=== PATIENT | male | born 1960 | race African-American/Black ===

== ENCOUNTER 2017-08-27 06:02 | Emergency (ER) | payer MEDICAID ==
[~2017-08-27] VITALS: Ht 180.3 cm; Wt 72.6 kg
[~2017-08-27 06:02] MED LIST: AMIO200T33 PO; AMLO10TA2 PO; ASPI-231 PO; DOCU-94 PO; HYDR-531 PO; MET50T PO; NAPR-223 PO
[2017-08-27 07:10] LABS: Basophils # (auto) 0 uL; Basophils % (auto) 0.6 % (0.0-2.0); Eosinophils # (auto) 0 uL; Eosinophils % (auto) 0.5 % (0.0-7.0); Hemoglobin 13.9 g/dL (13.5-17.5); Lymphocytes % (auto) 21.8 % (10.0-50.0); Mean Corpuscular Hemoglobin 27.4 pg (28.0-32.0); Mean Corpuscular Hgb Conc. 33.1 g/dL (32.0-36.0); Mean Corpuscular Volume 82.8 fL (80.0-100.0); Monocytes # (auto) 0.5 uL; Monocytes % (auto) 12.1 % (0.0-12.0); Neutrophils # (auto) 2.9 uL; Nucleated Red Blood Cells % 0.2 %; Platelet Count (auto) 207 10^3/uL (140-450); Red Blood Cells 5.07 10^6/uL (4.5-5.90); Red Cell Distribution Width 14.5 % (11.8-14.3); White Blood Cell 4.5 10^3/uL (4.4-10.8)
[2017-08-27 07:22] LABS: Albumin 4.4 g/dL (3.4-5.0); BUN/Creatinine Ratio 14.1; Bilirubin, Total 0.6 mg/dL (0.2-1.0); Magnesium 2.7 mg/dL (1.6-2.6)
[2017-08-27] MEDS ORDERED: ONDANSETRON HCL 4 MG/2 ML VIAL IV ONE (07:45)
[2017-08-27] MEDS ORDERED: NALBUPHINE HCL 10 MG/1ml INJECTION IV ONE (07:45)
[2017-08-27] MEDS ORDERED: diphenhdrAMINE HCL 50 MG/1 ML VL IV ONE (08:15)
[2017-08-27 09:30] VITALS: BP 141/82
== END 2017-08-27 10:18 | disposition home or self-care (01) ==
LOC: EDBD 06:02 → ER 06:09
DX: R07.89 Other chest pain (principal); G89.4 Chronic pain syndrome; I48.91 Unspecified atrial fibrillation; I10 Essential (primary) hypertension; G89.29 Other chronic pain; M54.9 Dorsalgia, unspecified; Z79.899 Other long term (current) drug therapy
CPT/HCPCS: 36415; 71046; 80053; 83735; 83880; 84484; 85025; 93005; 96374; 96375; 99285; J1200; J2300; J2405

== ENCOUNTER 2017-11-03 16:50 | Emergency (ER) | payer MEDICAID ==
[~2017-11-03] VITALS: Ht 175.3 cm; Wt 72.6 kg
[2017-11-03] MEDS ORDERED: cloNIDine HCL 0.1 MG TAB ONE (17:03)
[2017-11-03] MEDS ORDERED: cloNIDine HCL 0.1 MG TAB PO ONE (17:15)
[2017-11-03 21:25] VITALS: BP 153/88
[2017-11-03] MEDS ORDERED: KETOROLAC TROMETH 60MG/2ML VIAL IM ONE (21:30)
== END 2017-11-03 22:11 | disposition home or self-care (01) ==
LOC: ER 16:55
DX: G89.29 Other chronic pain (principal); M54.9 Dorsalgia, unspecified; L03.012 Cellulitis of left finger; I10 Essential (primary) hypertension; I48.91 Unspecified atrial fibrillation
CPT/HCPCS: 72100; 73130; 96372; 99284; J1885

== ENCOUNTER 2022-03-23 11:40 | Emergency (ER) | payer MEDICAID, OTHER ==
[~2022-03-23] VITALS: Ht 175.3 cm; Wt 81.8 kg
[2022-03-23 11:40] VITALS: BP 175/93
[~2022-03-23 11:40] MED LIST changes: +AMLO-496 PO; -AMLO10TA2 PO; -ASPI-231 PO; +ASPI1TAB20 PO
[2022-03-23 12:24] LABS: Basophils # (auto) 0 10 ^3/uL (0-0.2); Eosinophils # (auto) 0 10 ^3/uL (0-0.8); Hemoglobin 13.7 g/dL (13.5-17.5); Monocytes # (auto) 0.3 10 ^3/uL (0-1.3); Neutrophils # (auto) 2.3 10 ^3/uL (1.6-8.6); Nucleated Red Blood Cells % 0.1 %; White Blood Cell 3.5 10^3/uL (4.4-10.8)
[2022-03-23 12:26] LABS: Basophils % (auto) 1.1 % (0.0-2.0); Eosinophils % (auto) 0.6 % (0.0-7.0); Hematocrit 43.1 % (41.0-53.0); Lymphocytes # (auto) 0.8 10 ^3/uL (0.4-5.4); Lymphocytes % (auto) 22.8 % (10.0-50.0); Mean Corpuscular Hemoglobin 25.5 pg (28.0-32.0); Mean Corpuscular Hgb Conc. 31.7 g/dL (32.0-36.0); Mean Corpuscular Volume 80.5 fL (80.0-100.0); Monocytes % (auto) 9.3 % (0.0-12.0); Neutrophils % (auto) 66.2 % (37.0-80.0); Red Blood Cells 5.35 10^6/uL (4.5-5.90); Red Cell Distribution Width 15.7 % (11.8-14.3)
[2022-03-23 12:40] LABS: INR 1.19 (0.9-1.15); Partial Thromboplastin Time 53.6 sec (24.6-33.4)
[2022-03-23 12:43] LABS: Albumin 4.3 g/dL (3.4-5.0); Magnesium 2.5 mg/dL (1.6-2.6)
[2022-03-23 12:46] LABS: BUN/Creatinine Ratio 13.4; Bilirubin, Total 0.6 mg/dL (0.2-1.0); Total Protein 7.6 g/dL (6.4-8.2)
[2022-03-23 13:09] LABS: Potassium 3.8 mmol/L (3.5-5.1)
== END 2022-03-23 17:51 | disposition home or self-care (01) ==
LOC: ER 11:40
DX: R07.89 Other chest pain (principal); I48.91 Unspecified atrial fibrillation; I10 Essential (primary) hypertension
CPT/HCPCS: 36415; 71045; 80053; 83735; 83880; 84484; 85025; 85610; 85730; 93005

== ENCOUNTER 2022-08-26 15:59 | Inpatient (IN) | payer OTHER ==
[~2022-08-26] VITALS: Ht 175.3 cm; Wt 80.0 kg
[2022-08-26] MEDS ORDERED: DEXTROSE 50% SYRINGE 50 ML IV ONE (16:08)
[2022-08-26] MEDS ORDERED: DEXTROSE (50%) 50ML SYRG IV ONE (16:30)
[2022-08-26] MEDS ORDERED: SODIUM CHLORIDE 0.9% 1,000 ML IVB ONE (16:30)
[2022-08-26 17:27] LABS: Basophils # (auto) 0 10 ^3/uL (0-0.2); Basophils % (auto) 0.3 % (0.0-2.0); Eosinophils # (auto) 0 10 ^3/uL (0-0.8); Eosinophils % (auto) 0.1 % (0.0-7.0); Hematocrit 41.5 % (41.0-53.0); Hemoglobin 13.3 g/dL (13.5-17.5); Lymphocytes # (auto) 0.5 10 ^3/uL (0.4-5.4); Mean Corpuscular Hemoglobin 26.8 pg (28.0-32.0); Mean Corpuscular Hgb Conc. 31.9 g/dL (32.0-36.0); Mean Corpuscular Volume 83.8 fL (80.0-100.0); Monocytes % (auto) 7.9 % (0.0-12.0); Neutrophils % (auto) 87.7 % (37.0-80.0); Red Blood Cells 4.96 10^6/uL (4.5-5.90); Red Cell Distribution Width 14.6 % (11.8-14.3); White Blood Cell 12.5 10^3/uL (4.4-10.8)
[2022-08-26 17:47] LABS: Alanine Aminotransferase 63 U/L (16-61); Albumin 3.7 g/dL (3.4-5.0); Anion Gap 10 (5-15); Aspartate Aminotransferase 49 U/L (15-37); Blood Alcohol < 3.0 mg/dL (0-5); Blood Urea Nitrogen 19 mg/dL (7-18); Calcium 8.6 mg/dL (8.5-10.1); Carbon Dioxide 24 mmol/L (21-32); Chloride 109 mmol/L (98-107); GFR African American 58 mL/min; GFR Non-African American 48 mL/min; Glucose 89 mg/dL (74-106); Magnesium 2.3 mg/dL (1.6-2.6); Potassium 4.1 mmol/L (3.5-5.1); Sodium 143 mmol/L (136-145)
[2022-08-26 17:49] LABS: Alkaline Phosphatase 76 U/L (45-117); Bilirubin, Total 0.4 mg/dL (0.2-1.0); Total Protein 6.7 g/dL (6.4-8.2)
[2022-08-26 17:54] LABS: Acetaminophen < 2.0 ug/mL (10-30); Salicylate < 1.7 mg/dL (2.8-20.0)
[2022-08-26] MEDS ORDERED: ACETAMINOPHEN 325 MG TAB PO PRN (21:30)
[2022-08-26] MEDS ORDERED: ONDANSETRON HCL 4 MG/2 ML VIAL IV PRN (21:30)
[2022-08-26] MEDS ORDERED: NITROGLYCERIN 0.4 MG SL TAB SL PRN (21:30)
[2022-08-26] MEDS ORDERED: MORPHINE SULFATE INJ 2 MG/ml SYRG IV PRN (21:30)
[2022-08-26] MEDS: ATORVASTATIN 20 MG TAB PO SCH (21:41)
[2022-08-26] MEDS: DABIGATRAN 75 MG CAP PO SCH (22:00)
[2022-08-26 22:20] LABS: BUN/Creatinine Ratio 16.1; Calcium 8.5 mg/dL (8.5-10.1); Potassium 4.1 mmol/L (3.5-5.1)
[2022-08-27 07:00] LABS: Calcium 8.5 mg/dL (8.5-10.1); Potassium 4.2 mmol/L (3.5-5.1)
[2022-08-27 07:03] LABS: Hemoglobin 13.4 g/dL (13.5-17.5)
[2022-08-27 07:05] LABS: BUN/Creatinine Ratio 19.8; Mean Corpuscular Hemoglobin 26.8 pg (28.0-32.0); Mean Corpuscular Hgb Conc. 31.8 g/dL (32.0-36.0); Mean Corpuscular Volume 84.2 fL (80.0-100.0); Red Blood Cells 4.99 10^6/uL (4.5-5.90); Red Cell Distribution Width 14.9 % (11.8-14.3); White Blood Cell 9.8 10^3/uL (4.4-10.8)
[2022-08-27 07:06] LABS: Albumin 3.9 g/dL (3.4-5.0); Bilirubin, Total 0.6 mg/dL (0.2-1.0)
[2022-08-27 07:08] LABS: Band Neutrophils % (manual) 0; Basophils % (manual) 0 (0.0-2.0); Blast Cells 0; Eosinophils % (manual) 0 (0-7); Metamyelocytes % 0; Myelocytes % 0; Promyelocytes % 0; Reactive Lymphocytes 0
[2022-08-27 07:56] LABS: Urine Bacteria NONE SEEN /hpf (None Seen); Urine Blood Negative /uL (Negative); Urine Hyaline Cast FEW /lpf (0 - 2); Urine Mucus FEW (None Seen); Urine Specific Gravity 1.022 (1.001-1.035); Urine WBC 3 /hpf (0 - 3)
[2022-08-27 08:57] LABS: Lymphocytes % (manual) 9 (10.0-50.0); Monocytes % (manual) 5 (0-12)
[2022-08-27 09:13] LABS: Alcohol, Urine < 3.0 mg/dL (0-10); Amphetamine Screen, Urine NEGATIVE (NEGATIVE); Barbiturate Scree,Urine NEGATIVE (NEGATIVE); Cannabinoid Screen, Urine NEGATIVE (NEGATIVE)
[2022-08-27 09:23] LABS: Benzodiazephine Screen, Urine NEGATIVE (NEGATIVE); Cocaine Screen, Urine NEGATIVE (NEGATIVE); Opiate Scree,Urine POSITIVE (NEGATIVE); Phencyclidine Screen, Urine NEGATIVE (NEGATIVE)
[2022-08-27] MEDS: DABIGATRAN 75 MG CAP PO SCH ×2 (10:00→23:10)
[2022-08-27] MEDS: METOPROLOL SUCCINATE XL 50 MG TAB PO SCH (10:02)
[2022-08-27] MEDS: amLODIPine BESYLATE 5 MG TAB PO SCH (10:02)
[2022-08-27] MEDS: ASPirin 81 mg TAB PO SCH (10:02)
[2022-08-27] MEDS ORDERED: KETOROLAC TROMETH 30 MG/ML 1ML VIAL IV ONE (14:00)
[2022-08-27] MEDS ORDERED: KETOROLAC TROMETH 30 MG/ML 1ML VIAL IV PRN (14:00)
[2022-08-27] MEDS ORDERED: TAMSULOSIN HYDROCHLORIDE 0.4 MG CAP PO SCH (18:00)
[2022-08-27] MEDS: FLECAINIDE ACETATE 50 MG TAB PO SCH (22:00)
[2022-08-27] MEDS: ATORVASTATIN 20 MG TAB PO SCH (23:10)
[2022-08-28 06:59] LABS: Basophils # (auto) 0 10 ^3/uL (0-0.2); Eosinophils # (auto) 0.1 10 ^3/uL (0-0.8); Hemoglobin 13.2 g/dL (13.5-17.5); Lymphocytes # (auto) 1.1 10 ^3/uL (0.4-5.4); Mean Corpuscular Volume 83.5 fL (80.0-100.0); Monocytes # (auto) 0.5 10 ^3/uL (0-1.3)
[2022-08-28 07:01] LABS: Basophils % (auto) 0.2 % (0.0-2.0); Hematocrit 41.3 % (41.0-53.0); Lymphocytes % (auto) 28.1 % (10.0-50.0); Mean Corpuscular Hemoglobin 26.8 pg (28.0-32.0); Mean Corpuscular Hgb Conc. 32.1 g/dL (32.0-36.0); Monocytes % (auto) 12.8 % (0.0-12.0); Neutrophils # (auto) 2.2 10 ^3/uL (1.6-8.6); Neutrophils % (auto) 55.9 % (37.0-80.0); Nucleated Red Blood Cells % 0.2 %; Red Blood Cells 4.94 10^6/uL (4.5-5.90); Red Cell Distribution Width 14.6 % (11.8-14.3)
[2022-08-28 07:08] LABS: BUN/Creatinine Ratio 18.7; Calcium 8.6 mg/dL (8.5-10.1); Potassium 3.8 mmol/L (3.5-5.1)
[2022-08-28 07:10] LABS: Bilirubin, Total 0.5 mg/dL (0.2-1.0); Total Protein 6.2 g/dL (6.4-8.2)
[2022-08-28 08:00] VITALS: BP 132/75
[2022-08-28] MEDS: FLECAINIDE ACETATE 50 MG TAB PO SCH (10:00)
[2022-08-28] MEDS: ASPirin 81 mg TAB PO SCH (10:01)
[2022-08-28] MEDS: amLODIPine BESYLATE 5 MG TAB PO SCH (10:02)
[2022-08-28] MEDS: METOPROLOL SUCCINATE XL 50 MG TAB PO SCH (10:03)
[2022-08-28] MEDS: DABIGATRAN 75 MG CAP PO SCH (10:03)
== END 2022-08-28 11:29 | disposition home or self-care (01) | DRG 917 ==
LOC: ER 15:59 → EDBD 15:59 → TELE 21:26
PROVIDERS: ADMIT Nurse Practitioner; ATTEND Internal Medicine
DX: T40.5X1A Poisoning by cocaine, accidental (unintentional), initial encounter (principal); G92.8 Other toxic encephalopathy; I21.A1 Myocardial infarction type 2; N17.0 Acute kidney failure with tubular necrosis; D68.59 Other primary thrombophilia; E16.2 Hypoglycemia, unspecified; I10 Essential (primary) hypertension; E78.5 Hyperlipidemia, unspecified; I48.0 Paroxysmal atrial fibrillation; G89.29 Other chronic pain; M54.9 Dorsalgia, unspecified; I95.9 Hypotension, unspecified; Z20.822 Contact with and (suspected) exposure to COVID-19; Z82.49 Family history of ischemic heart disease and other diseases of the circulatory system; Y92.89 Other specified places as the place of occurrence of the external cause
CPT/HCPCS: 36415; 70450; 71045; 80048; 80053; 80307; 80320; 80329; 81001; 82010; 83605; 83735; 84484; 85007; 85025; 85027; 87426; 96361; 96374; 96375; 99291; G0378; J1885; J2405